=== PATIENT | male | born 1955 | race African-American/Black ===

== ENCOUNTER 2017-03-17 21:26 | Emergency (ER) | payer BC ==
[~2017-03-17] VITALS: Ht 177.8 cm; Wt 69.0 kg
[2017-03-18 00:40] VITALS: BP 134/81
== END 2017-03-18 01:17 | disposition home or self-care (01) ==
LOC: ER 21:26
DX: L24.5 Irritant contact dermatitis due to other chemical products (principal); T52.0X1A Toxic effect of petroleum products, accidental (unintentional), initial encounter; L03.114 Cellulitis of left upper limb; Y92.89 Other specified places as the place of occurrence of the external cause
CPT/HCPCS: 73130; 99284

== ENCOUNTER 2019-09-07 10:46 | Emergency (ER) | payer BC ==
[~2019-09-07] VITALS: Ht 172.7 cm; Wt 66.0 kg
[2019-09-07 10:59] VITALS: BP 152/103
[2019-09-07 12:38] LABS: CLARITY URINE CLEAR (CLEAR); COLOR URINE YELLOW (YELLOW); KETONES URINE NEGATIVE (NEGATIVE); LEUKOCYTE ESTERASE URINE NEGATIVE (NEGATIVE); NITRITE URINE NEGATIVE (NEGATIVE); OCCULT BLOOD URINE TRACE (NEGATIVE); PROTEIN URINE TRACE (NEGATIVE); SPECIFIC GRAVITY URINE 1.021 (1.005-1.030)
== END 2019-09-07 14:17 | disposition home or self-care (01) ==
LOC: ER 10:46
DX: R32 Unspecified urinary incontinence (principal); I10 Essential (primary) hypertension
CPT/HCPCS: 81003; 99283